=== PATIENT | male | born 1960 | race Caucasian/White ===

== ENCOUNTER 2017-11-30 19:21 | Emergency (ER) | payer OTHER ==
[2017-11-30 20:11] VITALS: BP 139/80
--- NOTE | 2017-11-30 20:51 | UC ---
Skin Complaint HPI - HPI Summary HPI Summary: 57 y/o male presents to the urgent care c/o a red, blistery, painful rash on his L scalp area that appeared yesterday. Pt states that prior to the rash appearing, he had pain in the area starting 4 days ago. Pt states having had chicken pox as a child. Pain is 6/10 and has not taking anything to alleviate symptoms. Pt denies BOWEN, dizziness, fever, SOB, chest pain, abdominal pain, N/V/D - History of Current Complaint Chief Complaint: UCRash Time Seen by Provider: 11/30/17 20:25 Stated Complaint: SKIN CONCERN/SCALP Hx Obtained From: Patient Onset/Duration: Gradual Onset, Lasting Days - 2 days, Still Present, Worse Since - today Skin Exposure Onset/Duration: Days Ago - 2 Timing: Constant Onset Severity: Mild Current Severity: Moderate Pain Intensity: 6 Pain Scale Used: 0-10 Numeric Location: Discrete - left side of scalp Character: Pain, Redness Aggravating Factor(s): Touch Alleviating Factor(s): Nothing Associated Signs & Symptoms: Positive: Rash, Tenderness. Negative: Difficulty Breathing, Fever, Chills, Hoarseness, Throat Tightening Related History: Other: - chicken pox as a child - Allergy/Home Medications Allergies/Adverse Reactions: Allergies Allergy/AdvReac Type Severity Reaction Status Date / Time No Known Allergies Allergy Verified 11/30/17 20:11 Home Medications: Home Medications Atorvastatin* [Lipitor 10 MG*] 10 mg PO DAILY 11/30/17 [History Confirmed ] Cholecalciferol TAB* [Vitamin D TAB*] 1,000 unit PO DAILY 11/30/17 [History Confirmed 11/30/17] Vitamin B Complex CAP* [B Complex CAP*] 1 cap PO DAILY 11/30/17 [History Confirmed 11/30/17] Review of Systems Constitutional: Negative Skin: Rash - left sdie of scalp w/ pain Eyes: Negative ENT: Negative Respiratory: Negative Cardiovascular: Negative Gastrointestinal: Negative Genitourinary: Negative Motor: Negative Neurovascular: Negative Musculoskeletal: Negative Neurological: Negative Psychological: Negative Is Patient Immunocompromised?: No All Other Systems Reviewed And Are Negative: Yes PMH/Surg Hx/FS Hx/Imm Hx Previously Healthy: Yes Endocrine History: Dyslipidemia Other Endocrine History: Vitamin D defficiency - Surgical History Surgical History: None - Family History Known Family History: Positive: Diabetes - Social History Occupation: Employed Full-time Lives: With Family Alcohol Use: Weekly Substance Use Type: None Smoking Status (MU): Never Smoked Tobacco Physical Exam - Summary Physical Exam Summary: Vital Signs Reviewed: Yes General: well developed, well nourished male sitting in the examining table w/o any apparent distress. Eyes: Positive: Conjunctiva Clear - PERRLA, EOMI ENT: Positive: Normal ENT inspection, Hearing grossly normal, Pharynx normal, TMs normal Neck: Positive: Supple, Nontender, No Lymphadenopathy Respiratory: Positive: Chest nontender, Lungs clear, Normal breath sounds Cardiovascular: Positive: RRR, No Murmur, Pulses Normal Abdomen Description: Positive: Nontender, No Organomegaly, Soft. Negative: CVA Tenderness (R), CVA Tenderness (L) Bowel Sounds: Positive: Present Musculoskeletal: Positive: Strength Intact, ROM Intact, No Edema Neurological Exam: Normal Psychological Exam: Normal Skin: Positive:Positive mild erythematous maculopapular eruption, some papule with clear vesicles. located in the left lateral side of scalp in a dermatomal distribution mild tenderness to palpation, no swelling observed. Triage Information Reviewed: Yes Vital Signs: Initial Vital Signs Temp 98.2 F 11/30/17 20:04 Pulse 69 11/30/17 20:04 Resp 16 11/30/17 20:04 BP 139/80 11/30/17 20:04 Pulse Ox 97 11/30/17 20:04 Course/Dx - Course Course Of Treatment: 57 y/o male presents to the urgent care c/o a red, blistery, painful rash on his L scalp area that appeared yesterday. Pt states that prior to the rash appearing, he had pain in the area starting 4 days ago. Pt states having had chicken pox as a child. Pain is 6/10 and has not taking anything to alleviate symptoms. Pt denies BOWEN, dizziness, fever, SOB, chest pain , abdominal pain, N/V/D. Hx obtained. Pt w/ a erythematous maculopapular eruptiion w/ some scattered clear vessicles , tender to palpation in a dermatomal distribution in the left side of scalp on examination. Pt probably w / Herpes zoster. Pt Rx valtrex and advised to take Ibuprofen PO to alleviate symptoms. Pt advised if not improvement or worsening of symptoms to return to the clinic or f/u with PCP or [employer] DR Russell for further treatment.PT understood and agreed with D/C instructions - Differential Diagnoses - Skin Complaint Differential Diagnoses: Allergic Reaction, Eczema, Varicella Zoster - Diagnoses Provider Diagnoses: 1- scalp shingles Discharge - Sign-Out/Discharge Documenting (check all that apply): Discharge/Admit/Transfer - D/C home - Discharge Plan Condition: Stable Disposition: HOME Prescriptions: ValACYclovir (*) [Valtrex 1 GM(*)] 1 gm PO TID #20 tab Patient Education Materials: Shingles (ED) Referrals: Katja Russell MD [Medical Doctor] - If Needed Oscar Kong DO [Primary Care Provider] - 3 Days Additional Instructions: 1-Please take full course of Antiviral. first dose given at the clinic tonight 2-Please F/u with your PCP or Associate Professor [employer] Dr russell in 3 days if not improvement of symptoms for further evaluation and treatment. - Billing Disposition and Condition Condition: STABLE Disposition: HOME
[2017-11-30] MEDS ORDERED: Acyclovir* 200 MG CAP PO ONE (20:59)
== END 2017-11-30 21:12 | disposition home or self-care (01) ==
LOC: UCCORT 19:21
DX: B02.9 Zoster without complications (principal)
CPT/HCPCS: 99202; A9270-GY; G0463